=== PATIENT | female | born 1995 | race American Indian/Alaskan Native ===

== ENCOUNTER 2018-04-09 21:50 | Emergency (ER) | payer SELFPAY ==
[2018-04-09 22:23] VITALS: BP 112/74
[2018-04-10] MEDS ORDERED: BENADRYL PO ONE (00:11)
--- NOTE | 2018-04-10 00:11 | Emergency Department Report ---
ED Rash HPI - HPI Chief Complaint: Skin Rash Stated Complaint: HIVES Time Seen by Provider: 04/10/18 00:07 Duration: approximately one month Location: Other (A she was getting hives diffusely that come and go) Rash Symptoms: Yes Itching, No Facial Swelling, No Tongue/Oral Swelling, No Breathing Difficulties, No Choking Sensation, No Wheezing/Dyspnea, No Peeling, No Blistering, No Fever ED Review of Systems ROS: Stated complaint: HIVES Other details as noted in HPI Comment: All other systems reviewed and negative ED Past Medical Hx - Past Medical History Previous Medical History?: No Additional medical history: punctured lung,fx rib r/t accident - Social History Smoking Status: Never Smoker Substance Use Type: None - Medications Home Medications: Home Medications Medication Instructions Recorded Confirmed Last Taken Type diphenhydrAMINE [Benadryl CAP] 25 mg PO Q6HR PRN #14 capsule 04/10/18 Unknown Rx methylPREDNISolone [Medrol] 4 mg PO DAILY #1 tab.ds.pk 04/10/18 Unknown Rx Rash Exam - Exam General: Vital signs noted. No distress. Alert and acting appropriately. HEENT: No Periorbital Edema, No Conjuctival Injection, No Chemosis, No Perioral Edema, No Tongue Edema, No Uvular Edema, No Compromised Airway, No Drooling Lungs: Yes Good Air Exchange (Normal Breath Sounds), No Wheezes, No Ronchi, No Stridor, No Cough, No Labored Respirations, No Retractions, No Use of Accessory Muscles, No Other Abnormal Lung Sounds Heart: Yes Regular, No Murmur Skin: Yes Urticarial Rash (diffuse) Other: Positive: Abdomen Normal, Neurologic Normal, Musculoskeletal Normal ED Course Vital Signs 04/09/18 04/09/18 22:18 22:59 Temperature 98.5 F 98.5 F Pulse Rate 79 77 Respiratory 18 18 Rate Blood Pressure 112/74 112/74 O2 Sat by Pulse 98 98 Oximetry ED Medical Decision Making - Medical Decision Making Patient states she is not sure what she could possibly be allergic to. The patient does have classic hives diffusely at this time on the torso and the upper extremities. Patient be started on Benadryl and Medrol Dosepak be discharged home with follow with information specialist Critical care attestation.: If time is entered above; I have spent that time in minutes in the direct care of this critically ill patient, excluding procedure time. ED Disposition Clinical Impression: Hives Disposition: DC-01 TO HOME OR SELFCARE Is pt being admited?: No Does the pt Need Aspirin: No Condition: Stable Instructions: Urticaria (ED) Referrals: LETICIA BRANCH MD [Referring] - 3-5 Days Time of Disposition: 00:11
[2018-04-10] MEDS ORDERED: DELTASONE PO ONE (00:12)
== END 2018-04-10 00:47 | disposition home or self-care (01) ==
LOC: ED 21:50
DX: L50.9 Urticaria, unspecified (principal)
CPT/HCPCS: 99282; J7512

== ENCOUNTER 2020-11-03 20:21 | Outpatient (CLI) | payer SELFPAY ==
[2020-11-03] MEDS ORDERED: LACTATED RINGERS 500 ML IV ONE (21:09)
[2020-11-03 22:49] LABS: Bilirubin,Urine NEG (Negative); Blood,Urine NEG (Negative); Color,Urine Straw (Yellow); Protein,Urine <15 mg/dL mg/dL (Negative); Urobilinogen,Urine < 2.0 mg/dL (<2.0); WBC,Urine < 1.0 /HPF (0.0-6.0)
--- NOTE | 2020-11-03 22:51 | Ultrasound Report ---
ULTRASOUND OBSTETRIC LIMITED ULTRASOUND BIOPHYSICAL PROFILE INDICATION / CLINICAL INFORMATION: labor. Clinical Gestational Age (GA) in weeks.days: 31.1 TECHNIQUE: Transabdominal. COMPARISON: None available. FINDINGS: NUMBER: Single PRESENTATION: cephalic PLACENTA: anterior and free of the os. MATERNAL ADNEXA: No significant abnormality. AMNIOTIC FLUID VOLUME: normal AMNIOTIC FLUID INDEX (SILVIA) in cm (if measured): 15.5 ANATOMY: Detailed anatomic evaluation was not performed. MEASUREMENTS: - Biparietal Diameter = 8.26 cm = 33.2 weeks.days - Head Circumference = 30.31 cm = 33.5 weeks.days - Abdominal Circumference = 30.02 cm = 34.0 weeks.days - Femur Length = 5.82 cm = 30.3 weeks.days - Estimated Weight (in grams, if calculated): 2070 - Heart Rate (beats per minute): 133 ADDITIONAL FINDINGS: The cervical length measures 2.7 cm, but is not optimally visualized per the la hnologist. PERCENTILE ESTIMATED WEIGHT (if calculated): 90 AVERAGE ULTRASOUND AGE (AUA) in weeks.days = 32.6 BREATHING MOVEMENT = 2 GROSS BODY MOVEMENT = 2 TONE = 2 QUALITATIVE AMNIOTIC FLUID VOLUME = 2 TOTAL BIOPHYSICAL SCORE = 8/8 IMPRESSION: 1. Single intrauterine with AUA of 32.6 weeks.days 2. Normal biophysical profile score of 8/8. Signer Name: Sharad Hardin MD Signed: 11/03/2020 10:46 PM Workstation Name: [id number]
== END 2020-11-04 00:35 | disposition home or self-care (01) ==
LOC: TRG 20:21 → APU 20:22 → TRG 11-04 00:35
PROVIDERS: ATTEND Obstetrics & Gynecology
DX: O42.913 Preterm premature rupture of membranes, unspecified as to length of time between rupture and onset of labor, third trimester (principal); Z3A.31 31 weeks gestation of pregnancy
CPT/HCPCS: 36415; 59025; 76815; 76816; 76819; 81001; 84112

== ENCOUNTER 2021-01-08 08:31 | Inpatient (IN) | payer OTHER ==
[2021-01-08] MEDS ORDERED: LACTATED RINGERS 1,000 ML ONE (09:27)
[2021-01-08] MEDS ORDERED: fentaNYL 100 MCG/2 ML INJ IV PRN (09:49)
[2021-01-08] MEDS ORDERED: miSOPROStol 200 MCG TAB PR PRN (09:49)
[2021-01-08] MEDS ORDERED: CARBOPROST TROMETHAMINE 250 MCG/1 ML INJ IM PRN (09:49)
[2021-01-08] MEDS ORDERED: ePHEDrine SULFATE 50 MG/1 ML INJ IV PRN (09:49)
[2021-01-08] MEDS ORDERED: LOPERAMIDE 2 MG CAP PO PRN (09:49)
[2021-01-08] MEDS ORDERED: MINERAL OIL 30 ML ORAL LIQD PO PRN (09:49)
[2021-01-08] MEDS ORDERED: TERBUTALINE 1 MG/1 ML INJ SUB-Q PRN (09:49)
[2021-01-08] MEDS ORDERED: BUTORPHANOL 2 MG/1 ML INJ IV PRN (09:49)
[2021-01-08] MEDS ORDERED: OXYTOCIN 10 UNIT/1 ML INJ IM PRN (09:49)
[2021-01-08] MEDS ORDERED: ACETAMINOPHEN 325 MG TAB PO PRN (09:49)
[2021-01-08] MEDS ORDERED: OXYTOCIN DRIP 30 UNITS/500 ML BAG IV SCH ×2 (10:00)
[2021-01-08 10:18] LABS: Hematocrit 31.9 % (30.3-42.9); Hemoglobin 10.7 gm/dl (10.1-14.3); Mean Corpuscular HGB Conc 34 % (30-34); Mean Corpuscular Volume 86 fl (79-97); Platelet Count 185 K/mm3 (140-440); Red Blood Count 3.73 M/mm3 (3.65-5.03); Red Cell Distribution Width 14.4 % (13.2-15.2)
--- NOTE | 2021-01-08 10:22 | History and Physical Report ---
History of Present Illness Date of examination: 01/08/21 Date of admission: 01/08/21 08:31 Chief complaint: "I'm here for an induction" History of present illness: 25 y/o presents to [facility] @ 40 4/7 wks for an IOL r/t postdates. Pt denies uc, vb, or loc and admits to active FM. She initiated her pnc @ [facility] @ 8 5/7 wks and had no complications. Maternal,medical, surg, social, family is unremarkable. GBS is positive. Pt was admitted to L&D for an IOL. Past History Past Medical History: no pertinent history Past Surgical History: no surgical history Family/Genetic History: none Social history: single, full code - Obstetrical History Expected Date of Delivery: 01/04/21 Actual Gestation: 40 Week(s) 4 Day(s) : 1 Para: 0 Medications and Allergies Allergies Allergy/AdvReac Type Severity Reaction Status Date / Time No Known Allergies Allergy Unverified 04/09/18 23:02 Home Medications Medication Instructions Recorded Confirmed Last Taken Type diphenhydrAMINE [Benadryl CAP] 25 mg PO Q6HR PRN #14 capsule 04/10/18 Unknown Rx methylPREDNISolone [Medrol] 4 mg PO DAILY #1 tab.ds.pk 04/10/18 Unknown Rx Active Meds: Active Medications Acetaminophen (Acetaminophen 325 Mg Tab) 650 mg PO Q4H PRN PRN Reason: Pain, Mild (1-3) Butorphanol Tartrate (Butorphanol 2 Mg/1 Ml Inj) 1 mg IV Q2H PRN PRN Reason: Pain, Moderate(4-6) LABOR PAIN Butorphanol Tartrate (Butorphanol 2 Mg/1 Ml Inj) 2 mg IV Q2H PRN PRN Reason: Pain , Severe (7-10) Carboprost Tromethamine (Carboprost Tromethamine 250 Mcg/1 Ml Inj) 250 mcg IM ONCE PRN PRN Reason: Uterine Bleeding Ephedrine Sulfate (Ephedrine Sulfate 50 Mg/1 Ml Inj) 10 mg IV Q2M PRN PRN Reason: Hypotension Fentanyl (Fentanyl 100 Mcg/2 Ml Inj) 100 mcg IV Q2H PRN PRN Reason: Pain,Severe (7-10) LABOR PAIN Oxytocin/Sodium Chloride (Pitocin/Ns 30 Unit/500ml) 30 units in 500 mls @ 2 mls/hr IV TITR [place]; Protocol Lactated Ringer's (Lactated Ringers) 1,000 mls @ 125 mls/hr IV DIRECT [place] Oxytocin/Sodium Chloride (Pitocin/Ns 30 Unit/500ml) 30 units in 500 mls @ 40 mls/hr IV TITR [place]; Protocol Ampicillin Sodium (Ampicillin/Ns 1 Gm/50 Ml) 1 gm in 50 mls @ 100 mls/hr IV Q4H [place]; Protocol Ampicillin Sodium (Ampicillin/Ns 2 Gm/100 Ml) 2 gm in 100 mls @ 100 mls/hr IV ONCE ONE; Protocol Stop: 01/08/21 11:48 Lidocaine (Lidocaine (2%) 20 Mg/1 Ml Vial 20 Ml Mdv) 20 ml INFILTRATI ONCE ONE Stop: 01/08/21 10:50 Loperamide HCl (Loperamide 2 Mg Cap) 2 mg PO ONCE PRN PRN Reason: give with Hemabate Methylergonovine Maleate (Methylergonovine Maleate 0.2 Mg/Ml Vial) 0.2 mg IM ONCE PRN PRN Reason: Uterine Bleeding Mineral Oil (Mineral Oil 30 Ml Oral Liqd) 30 ml PO QHS PRN PRN Reason: Constipation Misoprostol (Misoprostol 200 Mcg Tab) 800 mcg PA ONCE PRN PRN Reason: Uterine Bleeding Oxytocin (Oxytocin 10 Unit/1 Ml Inj) 10 unit IM ONCE PRN PRN Reason: Uterine Bleeding Terbutaline Sulfate (Terbutaline 1 Mg/1 Ml Inj) 0.25 mg SUB-Q ONCE PRN PRN Reason: Hyperstimulation/Hypertonicity Review of Systems All systems: negative Eyes: deferred Ears, nose, mouth and throat: deferred Breasts: normal Genitourinary: normal appearance Rectal Exam: normal exam-external/orifice - Vital Signs Vital signs: Vital Signs Pulse BP 83 113/69 01/08/21 08:53 01/08/21 08:53 Temp Pulse Resp BP Pulse Ox 98.4 F 69 111/74 98 01/08/21 09:01 01/08/21 10:12 01/08/21 09:53 01/08/21 10:12 - Physical Exam Breasts: Positive: normal Abdomen: Positive: normal appearance, normal bowel sounds Genitourinary (Female): Positive: normal external genitalia, normal perenium Vulva: both: normal Vagina: Positive: normal moisture Uterus: Positive: enlarged, normal contour, other (gravid) Adnexa: both: normal Anus/Rectum: Positive: normal perianal skin Extremities: Positive: normal - Obstetrical FHR: auscultation normal, category 1 Uterine Contraction Monitor Mode: External Cervical Dilatation: 1 (per nurse) Cervical Effacement Percentage: 40 (per nurse) station: -3 Uterine Contraction Pattern: Irregular Uterine Tone Measurement Phase: Resting Uterine Contraction Intensity: Mild Results Result Diagrams: 01/08/21 09:20 All other labs normal. Assessment and Plan A: IUP@ 40.4 wks postdates GBS pos p: Admit to L&D for cervidil IOL Continuous monitoring GBS prophylaxis Anticipate - Patient Problems (1) Post-dates Current Visit: Yes Status: Acute
[2021-01-08] MEDS ORDERED: LIDOCAINE (2%) 20 MG/1 ML VIAL 20 ML MDV INFILTRATI ONE (10:49)
[2021-01-08] MEDS ORDERED: METHYLERGONOVINE MALEATE 0.2 MG/ML VIAL IM PRN (10:49)
[2021-01-08] MEDS ORDERED: AMPICILLIN/NS 2 GM/100 ML 2 GM/100 ML BAG IV ONE (10:49)
[2021-01-08] MEDS ORDERED: DINOPROSTONE 10 MG VAG SUPP VG ONE (11:59)
[2021-01-08] MEDS: AMPICILLIN/NS 1 GM/50 ML 1 GM/50 ML BAG IV SCH ×3 (13:56→22:08)
[2021-01-08] MEDS: LACTATED RINGERS 1,000 ML IV SCH (17:54)
[2021-01-09] MEDS: AMPICILLIN/NS 1 GM/50 ML 1 GM/50 ML BAG IV SCH ×5 (01:41→20:52)
[2021-01-09] MEDS: BUTORPHANOL 2 MG/1 ML INJ IV PRN ×3 (01:49→06:50)
[2021-01-09] MEDS: LACTATED RINGERS 1,000 ML IV SCH ×5 (06:14→17:30)
--- NOTE | 2021-01-09 10:39 | Ultrasound Report ---
ULTRASOUND OBSTETRIC LIMITED INDICATION / CLINICAL INFORMATION: presentation. Clinical Gestational Age (GA) in weeks, days: 40, 5 TECHNIQUE: Transabdominal. COMPARISON: Ultrasound dated 11/03/20 FINDINGS: HEART RATE (beats per minute): 125 AMNIOTIC FLUID INDEX (cm) = not evaluated. (normal = 7-24 cm) PRESENTATION: Cephalic. ADDITIONAL FINDINGS: None. IMPRESSION: 1. Cephalic presentation. Signer Name: Idris Lopez MD Signed: 01/09/2021 10:35 AM Workstation Name: [id number]
--- NOTE | 2021-01-09 10:55 | Anesthesia Consultation ---
Anesthesia Consult and Med Hx Date of service: 01/09/21 - Airway Anesthetic Teeth Evaluation: Good ROM Head & Neck: Adequate Mental/Hyoid Distance: Adequate Mallampati Class: Class II Intubation Access Assessment: Good - Pulmonary Exam CTA: Yes - Cardiac Exam Cardiac Exam: RRR - Pre-Operative Health Status ASA Pre-Surgery Classification: ASA2 Proposed Anesthetic Plan: Epidural - Pulmonary Hx Smoking: No Hx Asthma: No Hx Respiratory Symptoms: No SOB: No COPD: No Home Oxygen Therapy: No Hx Pneumonia: No Hx Sleep Apnea: No - Cardiovascular System Hx Hypertension: No Hx Coronary Artery Disease: No Hx Heart Attack/AMI: No Hx Angina: No Hx Percutaneous Transluminal Coronary Angioplasty (PTCA): No Hx Cardia Arrhythmia: No Hx Pacemaker: No Hx Internal Defibrillator: No Hx Valvular Heart Disease: No Hx Heart Murmur: No Hx Peripheral Vascular Disease: No - Central Nervous System Hx Neuromuscular Disorder: No Hx Seizures: No CVA: No Hx Back Pain: Yes Hx Psychiatric Problems: No - Gastrointestinal Hx Ulcer: No Hx Gastroesophageal Reflux Disease: Yes - Endocrine Hx Renal Disease: No Hx End Stage Renal Disease: No Hx Cirrhosis: No Hx Liver Disease: No Hx Insulin Dependent Diabetes: No Hx Non-Insulin Dependent Diabetes: No Hx Thyroid Disease: No Hx Hypothyroidism: No Hx Hyperthyroidism: No - Hematic Hx Anemia: No Hx Sickle Cell Disease: No - Other Systems Hx Alcohol Use: No Hx Substance Use: No Hx Cancer: No Hx Obesity: No
--- NOTE | 2021-01-09 10:56 | Progress Note ---
Labor Epidural - Labor Epidural Start Time: 10:26 Stop Time: 10:40 Performed by:: RIZWAN PERKINS Procedure: Patient is requesting a laboring epidural for laboring pain. Patient IDed, H&P reviewed, all questions and concerns were answered, and consent was signed. Timeout was performed at bedside. Patient in sitting position. Sterile prep and drape was performed. [3] ml of 1% lidocaine skin wheal at L[3]- L [4]. 18- gauge Ingenictead epidural needle was advanced to loss of resistance with saline technique 6cm. Negative CSF negative blood. Epidural catheter advanced to [10] centimeters. [NEGATIVE] Aspiration [NEGATIVE] test dose. Sterile dressing applied. Patient tolerated procedure.
[2021-01-09] MEDS ORDERED: fentaNYL-BUPIV 2 MCG/ML-0.125% 200 MCG/100 ML BAG EPIDURAL SCH (11:00)
--- NOTE | 2021-01-09 11:02 | Event Note ---
Date: 01/09/21 Assumed care of patient. Patient has just received epidural and is comfortable. SVE 380/-3 cephalic. Category 1 FHR tracing.
[2021-01-09] MEDS ORDERED: ePHEDrine SULFATE 50 MG/1 ML INJ IV PRN (11:30)
[2021-01-09] MEDS ORDERED: NALOXONE 2 MG/2 ML INJ IV PRN (11:30)
[2021-01-09] MEDS ORDERED: fentaNYL 100 MCG/2 ML INJ IV PRN (14:57)
[2021-01-09] MEDS ORDERED: ACETAMINOPHEN 325 MG TAB PO PRN (14:57)
[2021-01-09] MEDS ORDERED: NalbUPHINE 10 MG/1 ML INJ IV PRN (14:57)
[2021-01-09] MEDS ORDERED: ONDANSETRON 4 MG/2 ML INJ IV PRN (15:20)
--- NOTE | 2021-01-09 20:20 | Event Note ---
Date: 01/09/21 SVE /.
[2021-01-10] MEDS ORDERED: oxyCODONE /ACETAMINOPHEN 5-325MG TAB PO PRN (02:50)
[2021-01-10] MEDS ORDERED: MAGNESIUM HYDROXIDE (MOM) ORAL LIQD UDC PO PRN (02:50)
[2021-01-10] MEDS ORDERED: PROMETHAZINE 25 MG RECT SUPP PR PRN (02:50)
[2021-01-10] MEDS ORDERED: HYDROCORTISONE 25 MG RECTAL SUPP PR PRN (02:50)
[2021-01-10] MEDS ORDERED: diphenhydrAMINE 25 MG CAP PO PRN (02:50)
[2021-01-10] MEDS ORDERED: ONDANSETRON 4 MG/2 ML INJ IV PRN (02:50)
[2021-01-10] MEDS ORDERED: ACETAMINOPHEN 325 MG TAB PO PRN (02:50)
[2021-01-10] MEDS ORDERED: PROMETHAZINE 25 MG TAB PO PRN (02:50)
--- NOTE | 2021-01-10 02:57 | Procedure Note ---
OB Delivery Note - Delivery Date of Delivery: 01/10/21 Surgeon: DEL SONI JR Saw Maker: CAROLA ROUSE Estimated blood loss: 500cc - Vaginal Delivery presentation: vertex Delivery position: OA Intrapartum events: none Delivery induction: oxytocin Delivery augmentation: rupture of membranes, pitocin Delivery monitor: external FHT, external uterine Route of delivery: vacuum extraction Indicators for instrumentation: maternal exhaustion Delivery placenta: spontaneous Episiotomy: none Delivery laceration: 4th degree, vaginal side wall Delivery repair: vicryl Anesthesia: local, epidural Delivery comments: s/p vacuum-assisted vaginal delivery for nonreassuring heart tones for maternal exhaustion. Patient did experience a partial fourth degree laceration with a left sidewall laceration. The rectal mucosa was reapproximated with 3-0 Vicryl. The anal sphincter was repaired with 3-0 Vicryl. The remainder of the second-degree laceration was repaired with 2-0 Vicryl. Delivery female infant at 0154. Apgars 8/9. Weight 3830 g. Length 20 inches. EBL 500 cc. Fundus firm below the umbilicus after Methergine x1 for uterine atony. - Infant A at 1 minute: 8 at 5 minutes: 9 Gender: Female
[2021-01-10] MEDS ORDERED: ceFAZolin/Water 2 GM/20 ML 0 GM/0 ML SYRINGE IV ONE (03:28)
[2021-01-10] MEDS: IBUPROFEN 600 MG TAB PO SCH ×4 (03:33→23:49)
[2021-01-10] MEDS: SENNOSIDES/DOCUSATE SODIUM 8.6/50 MG TAB PO SCH (09:19)
[2021-01-10] MEDS: DOCUSATE SODIUM 100 MG CAP PO SCH ×2 (09:19→23:49)
[2021-01-10 16:47] LABS: Hematocrit 23.7 % (30.3-42.9); Hemoglobin 8.2 gm/dl (10.1-14.3)
[2021-01-10] MEDS: WITCH HAZEL/ GLYCERIN PAD TP PRN (17:28)
--- NOTE | 2021-01-10 17:59 | Post Anesthesia Evaluation ---
- Post Anesthesia Evaluation Patient Participated: Yes Airway Patent: Yes Stable Respiratory Function: Yes Nausea/Vomiting: No Temp > 96.8F: Yes Pain Manageable: Yes Adequeate Hydration: Yes Anesthesia Complications: No Block Receding Appropriately: Yes Patient on Ventilator: No
[2021-01-11] MEDS: IBUPROFEN 600 MG TAB PO SCH ×3 (05:06→18:09)
[2021-01-11] MEDS ORDERED: TETANUS,DIPH,PERTUSS(ACELL) VACCINE 0.5 ML SYRINGE IM ONE (06:00)
--- NOTE | 2021-01-11 09:17 | Progress Note ---
Assessment and Plan - Patient Problems (1) Status post vaginal delivery Current Visit: Yes Status: Acute Plan to address problem: Patient doing well day 1 patient is meeting all goals except for a bowel movement. Patient is seen as needed for soft bowel movement prior to discharge home. Anticipate discharge in next 24 to 48 hours after soft bowel movement. Subjective - Subjective Date of service: 01/11/21 Principal diagnosis: PPD1, 4th degree laceration Interval history: Patient reports that she is feeling well. Baby doing well in the room. Patient reports that she is eating, drinking, tolerating p.o. Patient reports she has not had a bowel movement yet however has started on stool softeners. Und erstands need for soft bowel movements for the near future given the fourth degree laceration. Patient reports: appetite normal, voiding normally, pain well controlled, flatus : doing well Objective - Vital Signs Latest vital signs: Vital Signs Temp Pulse Resp BP Pulse Ox 01/11/21 00:21 98.2 F 78 20 101/57 96 01/10/21 18:03 98.0 F 82 16 104/64 99 01/10/21 11:34 97.8 F 82 18 102/68 98 Intake and Output 01/10/21 01/11/21 01/11/21 23:59 07:59 15:59 Intake Total 600 120 Output Total 600 Balance 0 120 Intake: Oral 600 120 Output: Urine 600 Void 600 Other: Total, Intake Amount 240 120 Total, Output Amount 600 # Voids Void 1 1 - Exam Abdomen: Present: normal appearance, normal bowel sounds Uterus: Present: firm Extremities: Present: normal Incision: Present: normal - Labs Labs: Abnormal lab results 01/10/21 Range/Units 16:14 Hgb 8.2 L (10.1-14.3) gm/dl Hct 23.7 L D (30.3-42.9) %
[2021-01-11] MEDS: DOCUSATE SODIUM 100 MG CAP PO SCH ×2 (10:50→22:44)
[2021-01-11] MEDS: LANOLIN/ZINC/DIMETHICONE (LANSINOH) 7 GM TP PRN (10:50)
[2021-01-11] MEDS: SENNOSIDES/DOCUSATE SODIUM 8.6/50 MG TAB PO SCH (18:12)
--- NOTE | 2021-01-12 09:33 | Discharge Summary ---
Providers - Providers Date of Admission: 01/08/21 08:31 Date of discharge: 01/12/21 Attending physician: MOLLY COOK MD Primary care physician: SONIDO MCWILLIAMS Hospitalization Reason for admission: induction of labor Delivery: vacuum extraction Episiotomy: none Laceration: 4th degree Incision: normal, intact Other procedures: none complications: other (asymptomatic anemia) Discharge diagnosis: IUP at term delivered [place] baby: male Hospital course: Pt presented to [facility] for an IOL r/t postdates. She had a VAD with a 4th degree lac. Pt dev asymptomatic anemia pp and was started on Fe. See H&P, delivery summary, and pp notes. Condition at discharge: Stable Disposition: DC-01 TO HOME OR SELFCARE - Discharge Diagnoses (1) Post-dates Status: Acute Plan - Discharge Medications Prescriptions: Docusate Sodium [Colace CAP] 100 mg PO BID #30 capsule Ferrous Sulfate [Feosol 325 MG tab] 325 mg PO BID #120 tablet Ibuprofen [Motrin 600 MG tab] 600 mg PO Q6HR #30 tablet - Provider Discharge Summary Activity: routine, no sex for 6 weeks, no heavy lifting 4 weeks, no strenuous exercise Diet: routine Instructions: routine Additional instructions: [] Smoking cessation referral if applicable(refer to patient education folder for contact #) [] Refer to [facility] Booklet Call your doctor immediately for: * Fever > 100.5 * Heavy vaginal bleeding ( >1 pad per hour) * Severe persistent headache * Shortness of breath * Reddened, hot, painful area to leg or breast * Drainage or odor from incision. * Keep incision clean and dry at all times and follow doctor's instructions regarding bathing/showering - Follow up plan Follow up: SONIDO MCWILLIAMS MD [Primary Care Provider] - 6 Weeks
[2021-01-12] MEDS ORDERED: FERROUS SULFATE 325 MG TAB PO SCH (10:00)
[2021-01-12] MEDS: LANOLIN/ZINC/DIMETHICONE (LANSINOH) 7 GM TP PRN (11:59)
[2021-01-12] MEDS: WITCH HAZEL/ GLYCERIN PAD TP PRN (11:59)
[2021-01-12] MEDS: DOCUSATE SODIUM 100 MG CAP PO SCH (12:00)
[2021-01-12 14:44] VITALS: BP 119/76
== END 2021-01-12 12:30 | disposition home or self-care (01) | DRG 768 ==
LOC: LD 08:31 → OB 01-10 04:22
PROC: 10D07Z6 Extraction of Products of Conception, Vacuum, Via Natural or Artificial Opening (ICD-10-PCS; principal; 2021-01-10)
PROC: 0DQP0ZZ Repair Rectum, Open Approach (ICD-10-PCS; 2021-01-10)
PROC: 3E0R3BZ Introduction of Anesthetic Agent into Spinal Canal, Percutaneous Approach (ICD-10-PCS; 2021-01-10)
PROC: 00HU33Z Insertion of Infusion Device into Spinal Canal, Percutaneous Approach (ICD-10-PCS; 2021-01-10)
PROC: 3E033VJ Introduction of Other Hormone into Peripheral Vein, Percutaneous Approach (ICD-10-PCS; 2021-01-10)
PROC: 3E0P7VZ Introduction of Hormone into Female Reproductive, Via Natural or Artificial Opening (ICD-10-PCS; 2021-01-10)
PROC: 3E0234Z Introduction of Serum, Toxoid and Vaccine into Muscle, Percutaneous Approach (ICD-10-PCS; 2021-01-11)
DX: O48.0 Post-term pregnancy (principal); Z37.0 Single live birth; O70.3 Fourth degree perineal laceration during delivery; Z3A.40 40 weeks gestation of pregnancy; O99.824 Streptococcus B carrier state complicating childbirth; Z20.822 Contact with and (suspected) exposure to COVID-19; Z23 Encounter for immunization; O99.62 Diseases of the digestive system complicating childbirth; K21.9 Gastro-esophageal reflux disease without esophagitis; O75.81 Maternal exhaustion complicating labor and delivery; O90.81 Anemia of the puerperium; D64.9 Anemia, unspecified
CPT/HCPCS: 36415; 59200; 76815; 85014; 85018; 85027; 86850; 86900; 86901; G0378; A6250; J0290; J0595; J0690; J2405; J2590; J7120; U0003